=== PATIENT | male | born 1970 | race Caucasian/White ===

== ENCOUNTER 2016-03-26 10:06 | Emergency (ER) | payer BC ==
[~2016-03-26] VITALS: Ht 190.5 cm; Wt 118.2 kg
[2016-03-26 10:21] VITALS: TEMP 98.1
[2016-03-26] MEDS ORDERED: ZANTAC 7575 MG (10:25)
[2016-03-26] MEDS ORDERED: COLACE 100100 MG/CAP (10:25)
[2016-03-26] MEDS ORDERED: VITAMIN D1000 IU (10:25)
[2016-03-26 11:16] LABS: BASO # 0.1 (0.0-0.2); BASO % 0.5 % (0.0-2.0); EOS # 0.1 (0.0-0.7); EOS % 0.8 % (0-4.0); GRAN # 8.2 (1.4-6.5); GRAN % 84.5 % (42.2-75.2); HEMATOCRIT 42.2 % (42.0-52.0); HEMOGLOBIN 14.8 g/dl (13.5-18.0); LYMPH # 0.9 (1.2-3.4); LYMPH % 9.2 % (20.0-51.0); MEAN CELL VOLUME 87 fl (80.0-100.0); MEAN CORPUSCULAR HEMOGLOBIN 31 pg (27.0-31.0); MEAN CORPUSCULAR HGB CONC 35 g/dl (33.0-37.0); MEAN PLATELET VOLUME 11.1 fl (7.4-10.4); MONO # 0.4 (0.1-0.6); MONO % 4.6 % (1.7-9.3); PLATELET COUNT 229 K/mm3 (130-400); RED BLOOD COUNT 4.84 M/mm3 (4.20-5.60); WHITE BLOOD COUNT 9.7 K/mm3 (4.8-10.8)
[2016-03-26 11:39] LABS: ALBUMIN 4.2 gm/dL (3.5-5.0); BILIRUBIN,TOTAL 1.8 mg/dL (0.0-1.0); CALCIUM 9.2 mg/dL (8.4-10.2); CREATININE, serum 0.94 mg/dL (0.66-1.25); POTASSIUM 3.9 mmol/L (3.4-5.0); TOTAL PROTEIN 7.9 gm/dL (6.4-8.2)
[2016-03-26] MEDS ORDERED: NORCO 325 MG-51 TAB PO (11:44)
[2016-03-26 12:13] LABS: PH 8 (5-8); SQUAMOUS EPITHELIAL 0-2 /hpf; URINE APPEARANCE Clear; URINE BACTERIA None Seen /hpf; URINE BILIRUBIN Negative (NEGATIVE); URINE BLOOD 2+ (NEGATIVE); URINE COLOR Yellow; URINE GLUCOSE Negative (NEGATIVE); URINE KETONE Trace (NEGATIVE); URINE RBC >50 /hpf; URINE UROBILINOGEN Negative (NEGATIVE); URINE WBC 0-2 /hpf
[2016-03-26 12:14] VITALS: BP 119/66; PULSE 71
== END 2016-03-26 12:15 | disposition home or self-care (01) ==
LOC: COL.ER 10:06
PROVIDERS: Family Medicine
DX: N20.2 Calculus of kidney with calculus of ureter (principal)
CPT/HCPCS: J1885; J2405; J7030

== ENCOUNTER 2016-04-13 12:22 | Day surgery (SDC) | payer BC ==
[~2016-04-13] VITALS: Ht 190.5 cm; Wt 116.2 kg
[~2016-04-13 12:22] MED LIST: COLACE 100100 MG/CAP; NORCO 325 MG-51 TAB PO; VITAMIN D1000 IU; ZANTAC 7575 MG
[2016-04-13 13:01] VITALS: BP 121/74; PULSE 76; TEMP 97.6
[2016-04-13] MEDS ORDERED: ZANTAC 300300 MG PO (13:10)
[2016-04-13] MEDS ORDERED: COLACE 100100 MG/CAP PO (13:10)
[2016-04-13] MEDS ORDERED: MULTI VITAMINS1 TAB PO (13:10)
[2016-04-13] MEDS ORDERED: GAS-X ULTRA ST180 MG PO (13:11)
[2016-04-13] MEDS ORDERED: ADVIL200 MG PO (13:11)
[2016-04-13 16:00] VITALS: BP 130/70; PULSE 68; TEMP 98.6
[2016-04-13 16:15] VITALS: BP 131/71; PULSE 62; TEMP 98.6
[2016-04-13 16:30] VITALS: BP 128/74; PULSE 60; TEMP 98.5
== END 2016-04-13 17:10 | disposition home or self-care (01) ==
LOC: SDCO 12:22
DX: N13.2 Hydronephrosis with renal and ureteral calculous obstruction (principal); Z87.442 Personal history of urinary calculi
CPT/HCPCS: C1769; C1894; C2617; J0690; J2405; J2704; J3010; J7120; Q9967